=== PATIENT | male | born 1955 | race Caucasian/White ===

== ENCOUNTER 2016-04-17 18:47 | Inpatient (IN) | payer SELFPAY ==
[~2016-04-17 18:47] MED LIST: ADVAIR 250-501 EACH IH; ALBUTEROL2.5 MG/0.5 PO; ASPIRIN EC81 MG PO; BACTRIM DS DPS1 TAB PO; CEFTIN250 MG PO; COLACE-DPS100 MG PO; COREG DPS12.5 MG PO; COREG DPS3.125 MG PO; DELTASONE DPS10 MG PO; DELTASONE DPS5 MG PO; DULERA 100/58.8 GM IH; DULERA 200/58.8 GM IH; DUONEB DPS3 ML IH; DUONEB DPS3 ML PO; GLUCOPHAGE-DPS500 MG PO; HABITROL DPS21 MG PO; LASIX DPS40 MG PO; LEVAQUIN DPS500 MG PO; LEVAQUIN500 MG PO; MAALOX DPS30 ML PO; NITROGLYCERIN0.4 MG PO; NITROSTAT0.4 MG SL; PRAVACHOL10 MG PO; PREDNISONE20 MG PO; PROAIR HFA8.5 GM IH; PROVENTIL HFA6.7 GM IH; SPIRIVA RESPIMAT4 GM IH; SPIRIVA18 MCG IH; SURFAK DPS240 MG PO; SURFAK240 MG PO; THERA1 EACH PO; TYLENOL DPS325 MG PO; TYLENOL325 MG PO; VENTOLIN HFA8 GM IH; VITAMIN D31000 UNIT PO; XOPENEX (C1.25 MG/0. IH; ZESTRIL DPS5 MG PO
[2016-04-24] MEDS ORDERED: LEVAQUIN DPS750 MG PO (11:41)
[2016-04-24] MEDS ORDERED: NICOTINE PATCH1 EAC1 TD (11:45)
[2016-07-20] MEDS ORDERED: MUCINEX600 MG PO (10:25)
[2016-07-20] MEDS ORDERED: DALIRESP500 MCG PO (10:25)
[2016-07-20] MEDS ORDERED: WELLBUTRIN XL150 MG PO (10:27)
== END 2016-04-23 15:57 | disposition home or self-care (01) | DRG 190 ==
DX: J44.1 Chronic obstructive pulmonary disease with (acute) exacerbation (principal); J96.21 Acute and chronic respiratory failure with hypoxia; E87.2 Acidosis; I50.22 Chronic systolic (congestive) heart failure; I42.9 Cardiomyopathy, unspecified; F17.210 Nicotine dependence, cigarettes, uncomplicated; E11.9 Type 2 diabetes mellitus without complications; I11.0 Hypertensive heart disease with heart failure; E66.9 Obesity, unspecified; Z99.81 Dependence on supplemental oxygen; Z79.84 Long term (current) use of oral hypoglycemic drugs; Z81.1 Family history of alcohol abuse and dependence; Z82.49 Family history of ischemic heart disease and other diseases of the circulatory system; Z68.34 Body mass index [BMI] 34.0-34.9, adult

== ENCOUNTER 2016-05-18 17:37 | Emergency (ER) | payer OTHER ==
[~2016-05-18 17:37] MED LIST changes: +LEVAQUIN DPS750 MG PO; +NICOTINE PATCH1 EAC1 TD
--- NOTE | 2016-05-19 13:27 | ER ---
ADMIT: 05/18/2016 RM/LOC: ER [facility] MR#: [id number] [address] [facility] [address] [place], [place] [address] RAMONA MYERS [address] [place] [address] Emergency Room Report SEX: M AGE: 60 : 1955 DATE: 05/18/2016 HISTORY OF PRESENT ILLNESS: The patient is a 60-year-old male with past medical history of COPD, hypertension, diabetes, came to the ER with chief complaint of 2 days of being more short of breath and difficulty breathing and wheezing. The patient states he uses a nebulizer at home which did not resolve the symptoms. The patient also had increased clear to yellow sputum which increased in the last few days. The patient denies any fever at home. The patient states he feels chest tightness but denies any obvious chest pain. PHYSICAL EXAMINATION: VITAL SIGNS: The patient was wheezing, sitting in the bed upright. The patient was afebrile in the ER. His heart rate was 105, and EKG showed normal sinus tachycardia, respiratory rate was 22-24 and blood pressure was stable. HEAD AND NECK: Normal. The patient had no stridor. There is no cyanosis. LUNGS: The patient had bilateral wheezing in the lungs without any crackles. HEART: Normal heart sounds. ABDOMEN: Soft. EXTREMITIES: No swelling in the extremities and no tenderness in extremities. The rest of the physical exam was noncontributory. EMERGENCY DEPARTMENT COURSE: The patient received albuterol nebulizer, followed by Decadron IM and also Xopenex nebulizer. Chest x-ray was negative for any infiltration. EKG was negative for any ST or T changes or arrhythmia, and also troponin I was negative too. The patient received 1 dose of Levaquin 750 mg p.o. in the ER. After the breathing treatments, the patient states he feels better. All this time, the O2 saturation was in mid 90s after breathing treatment and also before breathing treatments. The patient states he feels better, and with diagnosis of COPD exacerbation, he was discharged to home, 5 days of prednisone, Levaquin 750 mg p.o. for 5 days, and follow up with the primary doctor as needed. The patient acknowledged he understood the plan and agreed with it and was discharged home. Roosevelt Holly MD/ regan JOB #: [id number] CC: Yo Garcia MD, Attending Physician Saulo Rico MD, Family Physician
[2016-07-20] MEDS ORDERED: MUCINEX600 MG PO (10:25)
[2016-07-20] MEDS ORDERED: DALIRESP500 MCG PO (10:25)
[2016-07-20] MEDS ORDERED: WELLBUTRIN XL150 MG PO (10:27)
== END 2016-05-18 21:03 | disposition home or self-care (01) ==
LOC: ER 17:37
DX: J44.1 Chronic obstructive pulmonary disease with (acute) exacerbation (principal); I10 Essential (primary) hypertension; E11.9 Type 2 diabetes mellitus without complications; Z87.891 Personal history of nicotine dependence; Z79.899 Other long term (current) drug therapy

== ENCOUNTER 2016-07-14 15:30 | Inpatient (IN) | payer OTHER ==
[~2016-07-14] VITALS: Ht 185.4 cm; Wt 120.6 kg
--- NOTE | 2016-07-16 09:36 | ER ---
ADMIT: 07/14/2016 RM/LOC: 310 [facility] MR#: [id number] 2620 [facility] [address] [place], [place] [address] RAMONA MYERS [address] [place] [address] Emergency Room Report SEX: M AGE: 61 : 1955 DATE: 07/14/2016 TIME: 1530 hours. Please refer to my T-sheet for complete H and P. HISTORY OF PRESENT ILLNESS: Briefly, the patient is a 61-year-old with a known history of severe COPD. He was actually seen by Dr. Garland on , started on antibiotic and prednisone. He actually became worse, especially the last day or two. He still smokes a pack a day. He has not been still smoking. PHYSICAL EXAMINATION: VITAL SIGNS: Blood pressure 157/102, pulse 102, respirations 15, temp 97.4, sat 95% on a non-rebreather. GENERAL: He is anxious. HEENT: Grossly normal. LUNGS: Decreased breath sounds throughout with mild wheezes because he is moving minimal air. HEART: Tachy. ABDOMEN: Soft. SKIN: No rash. EXTREMITIES: 1+ edema. EMERGENCY DEPARTMENT COURSE: He arrived in our ER on a CPAP with multiple nebs and significant respiratory distress. We continued the BiPAP here. We did sepsis protocol which revealed chest x-ray of right lower lobe infiltrate. CBC was normal except white count 12. Chemistries normal except glucose 283. Cardiac enzymes negative. Coags normal. EKG is sinus rhythm, rate 96, no changes. He received Solu-Medrol on the way in. We did a DuoNeb here, kept him on the BiPAP. He was improved, started antibiotics, and he will be admitted. ASSESSMENT: 1. Right lower lobe pneumonia. 2. Chronic obstructive pulmonary disease severe exacerbation. 3. Nicotine abuse. PLAN: Admit. Critical care time of 75 minutes. Terry Rae MD/ regan JOB #: [id number] CC: Av Garland MD, Attending Physician Av Garland MD, Family Physician
--- NOTE | 2016-07-16 14:55 | CO ---
ADMIT: 07/14/2016 RM/LOC: 523 [facility] MR#: [id number] 26[address] [facility] [address] [place], [place] [address] RAMONA MYERS [address] [place] [address] Consultation SEX: M AGE: 61 : 1955 DATE OF CONSULTATION: 07/16/2016 ATTENDING PHYSICIAN: Av Garland CONSULTING PHYSICIAN: Artur Munoz MD HISTORY OF PRESENT ILLNESS: Mr. Myers is a pleasant, unfortunate, 61-year- old white male, with fairly severe COPD (GOLD stage III), with an FEV1 39% improving to 50 after bronchodilator on pulmonary function testing done about a year ago. He is on chronic oxygen therapy, and has had frequent exacerbations of his COPD. Most recently, in March. He was admitted to the hospital through the Emergency Department on 07/14/2016. Actually, he started having increasing cough and shortness of breath about a week prior to entry into the hospital. He was started on Augmentin on 07/10. He was seen by Dr. Garland in the office on 07/11. Oxygen saturation was adequate at that time. Reportedly in no acute respiratory distress, but because of wheezing prednisone was added. On the morning of admission, he became much more short of breath. He was brought in by rescue squad. In the Emergency Department, he was placed on BiPAP. Initially requiring up to 10 L of oxygen through the BiPAP. He was initially admitted to the intensive care unit as he screened in positive for sepsis. Lactate was 2.2. He was given IV fluids, resuscitated. He was started on Zosyn. He had a viral panel done, which was positive for parainfluenza 4. He was stabilized, transferred out of the intensive care unit, and then was seen in consultation. When seen in his room today, he was still short of breath, though reportedly much better than on admission, and his oxygen requirements are down close to baseline of 2-3 L. He still has cough. His cough is intermittently productive of phlegm and mucus. PAST MEDICAL HISTORY: Significant for COPD. He has had multiple hospitalizations over the last 12 months. Pulmonary function testing done in June of 2015, showed an FEV1 of 39%, improved to 50 after bronchodilator, FVC of 84% with an FEV1/FVC ratio 45%, and single breath diffusion of 53%. He has history of congestive cardiomyopathy, with an ejection fraction of 40% to 45% on an echocardiogram in January of 2016. He underwent cardiac catheterization, which showed normal coronary arteries. He has history of diabetes mellitus type 2, hypertension, obesity. He has been a smoker, he had quit smoking, and then resumed smoking about a half pack of cigarettes a day. MEDICATIONS: List of home medications reviewed in electronic medical records, ADMIT: 07/14/2016 RM/LOC: 523 [facility] MR#: [id number] [address] [place] [id number] RAMONA MYERS [address] [facility] [address] [place] [address] Consultation SEX: M AGE: 61 : 1955 indicates; 1. Aspirin 81 mg a day. 2. Dulera 200/5 one inhalation b.i.d. 3. Spiriva 18 mcg capsule inhaled daily. 4. Glucophage 500 mg b.i.d. 5. Lasix 40 mg daily. 6. Metformin 1 g b.i.d. 7. Multivitamin. 8. Vitamin D 1000 units daily. 9. He also takes Zestril 5 mg daily. 10.Xopenex as needed. SOCIAL HISTORY: He is engaged, lives at home with his fiancee. She is also a smoker. 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 Does not exercise on a regular basis. FAMILY HISTORY: Significant for severe COPD and lung cancer in his father. His father was a heavy smoker. Mother has history of diabetes. He has sister with diabetes and heart disease as well. REVIEW OF SYSTEMS: As above. All organ systems reviewed. Significant positives and negatives discussed above. Additionally, noted to have an upper respiratory infection that he feels he got from his 4-month-old grandson on the Thursday prior to entry into the hospital. Denies any chest pain. No recent change in bowel or bladder habits. He does feel "bloated," and feels that this contribute somewhat to his breathing difficulties as well. PHYSICAL EXAMINATION: VITAL SIGNS: Today was afebrile. T-max over last 24 hours of 99 degrees Fahrenheit. Blood pressure 130/90, pulse 72. Oxygen saturation is currently 95% on oxygen at 2 L/minute. GENERAL: This is a well-developed, well-nourished, pleasant white male, currently in no acute respiratory distress at rest. HEENT: Shows head to be normocephalic and atraumatic. Pupils equal and reactive. Nares congested but patent. Posterior hypopharynx with slight excess amount of soft tissue, Mallampati score of 2. NECK: Supple without adenopathy. CHEST: Revealed hyperinflation. He has bilateral wheezes with some central rhonchi localized to the right lung base. HEART: Regular, slightly tachycardic, no murmur. ABDOMEN: Obese, soft, and mildly distended, but nontender without organomegaly or masses. No guarding or rigidity is noted. EXTREMITIES: Trace of lower extremity edema. He has chronic stasis changes in his lower extremities as well. NEURO: No focal neurologic deficits are noted. He is awake, alert, and oriented x4. Mood and affect were appropriate. ADMIT: 07/14/2016 RM/LOC: 523 [facility] MR#: [id number] [address] [address] RAMONA MYERS [address] [facility] [address] [place] [address] Consultation SEX: M AGE: 61 : 1955 ASSESSMENT: He was admitted with acute on chronic hypoxic respiratory failure. He was treated aggressively in the emergency room and then in the intensive care unit on BiPAP, and has now stabilized back to his baseline oxygen requirement of 2 L/minute by nasal cannula. His severe chronic obstructive pulmonary disease (GOLD stage III), with an FEV1 of less than 50%. However, with frequent exacerbations, and limitations in his activity, he will be in category D with high risk of recurrent exacerbations. Treatment of these individuals would include probably triple therapy with combination of inhaled corticosteroid, inhaled long-acting beta agonist, and inhaled long-acting antimuscarinic. In addition to continuing those, it may be worthwhile to add roflumilast 500 mcg daily (brand name is Daliresp), as this has been shown to decrease exacerbations. Obviously, continuing the supplemental oxygen would be beneficial, and absolute abstinence from smoking. Additionally, he mentions his fiancee smokes pack a day and it would be ideal that she would quit smoking as well to remove secondhand smoke as possible irritant. There is some evidence as well that potentially Zithromax 500 mg three times a week may be beneficial in decreasing exacerbations, and this certainly could be a consideration as well. He has multiple other medical problems including nonischemic cardiomyopathy with an ejection fraction of 40% to 45%, hypertension, and type 2 diabetes mellitus. Additionally, he has obesity. I think at home a pulmonary rehab program may see him as well for improving exercise and overall fitness. Based on his symptoms, recurrent exacerbations, physical limitations, and shortness of breath, his 4-year survival is predicted at 18%. We will continue to follow here with you in the hospital and further recommendations to follow. Artur Munoz MD/ regan JOB #: [id number] CC: Av Garland, Attending Physician Av Garland, Family Physician
[2016-07-20] MEDS ORDERED: MUCINEX600 MG PO (10:25)
[2016-07-20] MEDS ORDERED: DALIRESP500 MCG PO (10:25)
[2016-07-20] MEDS ORDERED: WELLBUTRIN XL150 MG PO (10:27)
--- NOTE | 2016-07-27 14:54 | HP ---
ADMIT: 07/14/2016 RM/LOC: 310 [facility] MR#: [id number] [id number] [place], [place] [address] RAMONA MYERS [address] [place] [address] History and Physical SEX: M AGE: 61 : 1955 DATE OF SERVICE: CHIEF COMPLAINT: Shortness of breath and weakness. HISTORY OF PRESENT ILLNESS: This is a 61-year-old gentleman with COPD, which is severe and oxygen dependent. He started to have increased cough about a week ago and was started on Augmentin on July 10. On July 11, he was seen in the office. At that time, his oxygen saturation was at 94% on his usual 2 L. Blood pressure was 130/80, and he was in no acute distress. Prednisone for 3 days was added. He just finished that yesterday, but symptoms were getting worse and this morning, he felt he could not get his breath at all, was too weak even to get himself to the car so he is brought in by squad. His works overnight when she got home this morning said he "looked terrible." When the crocheter hand arrived to the home, they placed him on CPAP. He was given continuous nebulizer treatments. In the emergency room, he initially was on 10 L through the CPAP and gradually weaned down to BiPAP and then oxygen has been weaned down slightly. He is now on 4 L O2 through the BiPAP and saturations are in the upper 90s. He is alert and oriented and said he feels a lot better than when he first arrived. He was assessed via the sepsis protocol in the emergency room. Blood pressure was normal. His lactic acid was 2.2. Therefore, he was not given the fluid bolus. However, he was started on antibiotics based on chest x-ray finding of early right lower lobe pneumonia and his acute exacerbation of his COPD. We will use Levaquin and Zosyn. He is admitted to the ICU because he is unstable on the BiPAP, although he is much improved from his initial presentation. PAST MEDICAL HISTORY: Significant for: 1. COPD with multiple hospitalizations, last one being in March of 2016. 2. Diabetes type 2. 3. Tobacco use disorder with current smoking 1/2 pack per day. 4. Chronic systolic congestive heart failure. 5. Hypertension. 6. Obesity. 7. Last echocardiogram in January 2016, showed ejection fraction 40% to 45% with moderate left ventricular dilation and mild hypertrophy. He also had cardiac catheterization at that time showing normal coronary arteries and nonischemic cardiomyopathy. PAST SURGICAL HISTORY: None reported. MEDICATIONS: 1. Aspirin 81 mg daily. 2. Dulera 200/5 mcg 1 inhalation b.i.d. 3. Glucophage 500 mg b.i.d. 4. Lasix 40 mg daily. 5. Metformin 1000 mg b.i.d. 6. Multivitamin daily. 7. Spiriva 18 mcg inhalation daily. 8. Vitamin D 1000 units daily. ADMIT: 07/14/2016 RM/LOC: 310 [facility] MR#: [id number] [address] [address] RAMONA MYERS [address] [facility] [address] [place] [address] History and Physical SEX: M AGE: 61 : 1955 9. Xopenex metered dose inhaler 2 puffs every 4 hours as needed. 10.Zestril 5 mg daily. 11.He also takes Tylenol p.r.n. SOCIAL HISTORY: The patient is , and his came to the hospital with him. He says he rarely drinks and does not use any illicit drugs. He does not exercise. He walks around in his apartment, but does not have the energy or stamina to do anymore than that. 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 He said he drinks about 12 cups of coffee a day and he is back to smoking nearly a pack a day. After trying to quit back in March. FAMILY HISTORY: Father had lung cancer and alcoholism. Mother had diabetes. He has a sister with heart disease and diabetes. REVIEW OF SYSTEMS: GENERAL: He has had upper respiratory congestion, runny nose, and sore throat going on for a week. Cough got much worse about 5 days ago. CARDIOPULMONARY: Positive for extreme shortness of breath. They said he had chest heaviness when he was real short of breath, but it was not like any sort of anginal pain by his description. GASTROINTESTINAL: He said it felt like his belly is bloated. Otherwise, no nausea and no vomiting. He feels hungry. He had decreased appetite yesterday and this morning, but now feels like he can eat. Denies any diarrhea or constipation. No hematemesis. No dark stools. GENITOURINARY: Benign. MUSCULOSKELETAL: Positive for muscle weakness, which he blames on his shortness of breath. He also complains that his lower legs hurt from a previous past history of frostbite, and he cannot tolerate wearing MARYCARMEN hose or the SCDs. NEUROPSYCHIATRIC: Denies complaints other than feeling nervous about his hospitalization today. PHYSICAL EXAMINATION: VITAL SIGNS: O2 is at 98% now on 4 L of O2 bled in through CPAP. Heart rate is around 100 with occasional PVC. Blood pressure 130s/80s. Respirations are about 15. GENERAL: The patient is wearing CPAP and little bit difficult to understand because of that but he is alert oriented x3. HEENT: Pupils are equal and reactive. He has no obvious jugular venous distention. He has a heavy horowitz, however, down to his neck. LUNGS: With poor inspiratory sound, but he has expiratory wheezes throughout. I do not really hear rhonchi. HEART: Muffled, regular. ABDOMEN: Belly is rotund and a little bit distended and tympanic. He denies tenderness. I really cannot palpate for hepatosplenomegaly due to his obesity. EXTREMITIES: Lower extremities with just a trace of pretibial edema. He has some chronic brown splotchy discoloration on the lower legs. ASSESSMENT: ADMIT: 07/14/2016 RM/LOC: 310 [facility] MR#: [id number] 2620 [facility] [address] [place], [place] [address] [facility] [address] [place] [address] History and Physical SEX: M AGE: 61 : 1955 1. Chronic respiratory failure with acute exacerbation. 2. Diabetes type 2. 3. Hypertension. 4. Obesity. 5. Nicotine dependence. 6. Chronic systolic congestive heart failure with ejection fraction 40% noted in January of 2016. PLAN: He is admitted to the ICU. We will wean down the O2 and try switching over to nasal cannula while awake and back on CPAP for sleep tonight. I will use the Levaquin and Zosyn, which were started in the emergency room for antibiotic coverage and also give him IV steroid. I do note in a past note that he had nonsustained ventricular tachycardia, and it was felt to be secondary to albuterol treatments that were repeatedly given. We will use Xopenex here for this hospital stay. We will monitor his blood sugars and use sliding scale insulin as needed and otherwise continue his other medicines. He refuses to wear the compression hose or sequential compression device for lower extremities for VTE prevention. I will use Lovenox here. Viviana Ochoa MD/ regan JOB #: [id number] CC: Av Garland, Attending Physician Av Garland, Family Physician
--- NOTE | 2016-07-29 07:48 | DS ---
ADMIT: 07/14/2016 RM/LOC: 523 [facility] MR#: [id number] [address] [facility] [address] [place], [place] [id number] RAMONA MYERS [address] [place] [address] General Discharge Summary SEX: M AGE: 61 : 1955 ADMISSION DATE: 07/14/2016 DISCHARGE DATE: 07/19/2016 FINAL DIAGNOSES: 1. Acute exacerbation severe chronic obstructive pulmonary disease with hypoxia (GOLD stage III) (parainfluenza 4). 2. Ongoing/recurrent tobacco abuse. 3. Type 2 diabetes - steroid induced. 4. Chronic systolic congestive heart failure. 5. Systemic hypertension. 6. Obesity. 7. Echocardiogram in January 2016, showing ejection fraction of 40% to 45% with moderate left ventricle dilatation and mild hypertrophy. 8. Heart catheterization in January 2016, showing normal coronary arteries and nonischemic cardiomyopathy. BRIEF HISTORY: Mr. Myers is a 61-year-old gentleman with severe end-stage COPD that is O2 and basically steroid dependent. He had an increasing cough about a week prior to admission and was started on Augmentin. When seen in the office on July 11, his oxygen saturations are 94% on his 2 L. Vital signs were stable. He is in no acute distress, and prednisone for 3 days was added. He finished the prednisone, but then the next day came to the emergency room, stating he could not get his breath at all, was too weak to even get into the car, so he was brought in by squad. His said when she got home that morning from working he "looked terrible" and when petroleum geologist arrived in the home, they placed him on CPAP. He was given continuous nebulizer treatments. Initially in the ER, he was treated with 10 L of CPAP and gradually weaned down to BiPAP and O2 at 4 L through the BiPAP, and sats were in the upper 90s. He was placed on the sepsis protocol and given fluids. He was admitted to ICU because of the unstable situation on his BiPAP "although he is much improved with his initial presentation." Significant lab and x-ray at the time of this dictation, his laboratory studies are not in the computer. On 07/14, he did have a lactic acid of 2.5 mmol/L. Chest x-ray on admission was read as "impression: 1. Right lower lobe airspace disease either representing a right lower lobe infiltrate/pneumonia and/or atelectasis... 2. Bolus changes again noted involving the right upper lobe. 3. Normal cardiac size. No pulmonary edema identified.". On 07/15, chest x-ray was read as "improved aeration right lung base relative to prior study, mild persistent bibasilar opacities." By 07/18, chest x-ray was read as "overall, no significant interval change with persistent interstitial opacities bilaterally." EKG on admission was read as sinus arrhythmia with PVCs, possible left anterior fascicular block, occasional PVC, compared to 05/18/2016, no significant change." ADMIT: 07/14/2016 RM/LOC: 523 [facility] MR#: [id number] [address] [place] [id number] RAMONA MYERS [address] [facility] [address] [place] [address] General Discharge Summary SEX: M AGE: 61 : 1955 HOSPITAL COURSE: The patient was admitted through the emergency room to ICU with routine ICU orders. Critical care consultation was requested, and Dr. Pate was kind enough to see him. He was placed on inpatient nicotine replacement protocol. He was placed on subcu low-dose insulin per protocol. He was placed on Zosyn 3.375 mg IV q.8 hours and Levaquin 750 mg IV q.24 hours. He was placed on Lovenox 40 mg subcu daily. On 07/14 (day 1), he was afebrile. He stated that he felt minimally better. He had bilateral inspiratory and expiratory wheezes. He wanted "something to stop smoking" - he had failed Chantix in the past. He was placed on nicotine patches per protocol and Wellbutrin XL 150 mg q.a.m. Respiratory viral panel (nasal swab) was requested, but he refused having had one of those done with his previous hospitalizations. By 07/16, he had respiratory virus panel that showed parainfluenza 4. On 07/16, Pulmonary consult was requested for acute and long-term management, Daliresp 500 mcg p.o. q.a.m. was initiated, and Dulera 200/5 two puffs b.i.d. with spacer was initiated. He was seen by Physical Therapy and Occupational Therapy. Over the next few days, adjustments were made in his insulin therapy and his bronchopulmonary toilet continued. He slowly improved. He was seen by the dietitian. By 07/18, he was "a little bit better." He still had some expiratory wheezes with decreased breath sounds. At that point, he was changed from telemetry routine MedSurg orders. His IV Solu-Medrol started on admission was changed to prednisone 30 mg b.i.d. for 2 days with a taper over the next 10 days. By 07/18, it was felt safe to send him home. Followup was arranged for Pulmonary Clinic. On dismissal, he will be allowed ADA diet as tolerated, he will continue his home O2 at 2 to 4 L with his home nebulizer treatments, arrangements made for an office visit with me in 1 to 2 weeks. Arrangements were made for followup with [facility] and Pulmonology. DISCHARGE MEDICATIONS: On dismissal, his medications included: 1. Aspirin 81 mg daily. 2. Coreg 12.5 mg b.i.d. 3. Daliresp 500 mcg orally daily. 4. Deltasone 30 mg b.i.d. with taper. 5. Deltasone 5 mg daily after the taper. 6. Glucophage 1000 mg b.i.d. 7. Lasix 40 mg daily. 8. Levaquin 750 mg daily x5 days. 9. Mucinex 600 mg 2 b.i.d. 10.Multivitamin 1 daily. ADMIT: 07/14/2016 RM/LOC: 523 [facility] MR#: [id number] [address] [id number] RAMONA MYERS [address] [place] [address] General Discharge Summary SEX: M AGE: 61 : 1955 11.Vitamin D 1000 international units daily. 12.Wellbutrin XL 150 mg daily. 13.Dulera 200/5 two inhalations b.i.d. 14.Xopenex TJNs q.i.d. and p.r.n. 15.Spiriva 18 mcg inhaled daily. 16.Habitrol patch 21 mg daily per protocol. 17.He was placed back on metformin 1000 mg 2 b.i.d. 18.Furosemide 40 mg daily. CONDITION ON DISCHARGE: Stable on the above treatment. FINAL DISPOSITION: As noted. PROGNOSIS: Poor. Av Garland MD/ regan JOB #: [id number] CC: Av Garland MD, Attending Physician Av Garland MD, Family Physician . [facility]
== END 2016-07-19 13:48 | disposition home or self-care (01) | DRG 193 ==
LOC: ER 15:30 → 5MS 16:55 → ER 16:55 → 3ICU 16:55 → 5MS 07-15 19:53
PROVIDERS: ADMIT Family Medicine
DX: J12.2 Parainfluenza virus pneumonia (principal); J96.21 Acute and chronic respiratory failure with hypoxia; I42.9 Cardiomyopathy, unspecified; I50.22 Chronic systolic (congestive) heart failure; J44.1 Chronic obstructive pulmonary disease with (acute) exacerbation; J44.0 Chronic obstructive pulmonary disease with (acute) lower respiratory infection; I11.0 Hypertensive heart disease with heart failure; E11.65 Type 2 diabetes mellitus with hyperglycemia; F17.210 Nicotine dependence, cigarettes, uncomplicated; E66.9 Obesity, unspecified; Z79.82 Long term (current) use of aspirin; Z99.81 Dependence on supplemental oxygen; Z79.84 Long term (current) use of oral hypoglycemic drugs; Z68.35 Body mass index [BMI] 35.0-35.9, adult